=== PATIENT | male | born 1960 | race Caucasian/White ===

== ENCOUNTER 2022-09-16 11:07 | Emergency (ER) | payer OTHER, MEDICARE, SELFPAY ==
--- NOTE | 2022-09-16 11:21 | ED.GENADULT ---
HPI - General Adult General Chief complaint: Eye Problems Stated complaint: EYE PAIN, SEEN FOR SAME RECENTLY PER EMS Time Seen by Provider: 09/16/22 11:12 Source: patient and EMS Mode of arrival: EMS Limitations: no limitations History of Present Illness HPI narrative: 61 yo male with history of PTSD, depression, agoraphobia, anxiety and ETOH abuse who presents to the ER for evaluation of dry itchy eyes since 09/05. He went to the eye doctor who prescribed him antibiotic drops, ointment and Refresh drops for moisture. He called her the next day and told her it wasn't working. He reports compliance with her treatments. He states he cannot sleep because his eyes are itchy and watery. He put cream on the skin around his eyes but it burned. He reports increased watering and FB sensation. No hx injury or trauma. No hx allergies. No vision changes. MD complaint: itchy, dry eyes Onset (ago): day(s) Location: face Radiation: non-radiation Severity: severe Quality: aching and other (itchy) Pain Consistency: constant Relieving factors: none Exacerbating factors: none Related Data Allergies Allergy/AdvReac Type Severity Reaction Status Date / Time No Known Allergies Allergy Unverified 07/06/20 16:53 [No Known Allergies*] Review of Systems Review of Systems: Constitutional: No Fever, No Chills ENT/Mouth: No sore throat, No Rhinorrhea Eyes: + Eye Pain, + Swelling, + Redness, +Itching Cardiovascular: No Chest Pain, No SOB, No Orthopnea, No Edema Respiratory: No Cough, No Sputum Gastrointestinal: No Nausea, No Vomiting, No Diarrhea, No abdominal Pain Musculoskeletal: No joint pain, No Myalgias Skin: No Skin Lesions, No rash Neuro:No Dizziness, No Headache Psych: + Anxiety/Panic, No Depression PMFSH Social History Social History Advance Directives: No Advance Directives Information Provided: Yes Physical Exam ED Vital Signs: Vital Signs - 24 hr 09/16/22 11:33 Temperature 98.6 F Pulse Rate 81 Respiratory Rate 18 Blood Pressure 178/98 H Pulse Oximetry 100 Oxygen Delivery Method Room Air BMI result Body Mass Index 21.2 Appearance: Alert. Oriented X3. No acute distress. HEENT: normal external inspection with mild dry, flakey skin in the periorbial area. normal inspection of the sclera and conjuctiva. PERRLA, EOMI. no injection or discharge. CVS: Normal heart rate and rhythm. Pulses normal. Respiratory: No respiratory distress. Skin: Skin warm and dry. Normal skin color. Normal skin turgor. No rashes. Extremities: normal inspection x4. Neuro: Oriented X 3. Anxious. Nonfocal Course Course Course Narrative: 51-year-old male presents to the ER for evaluation of dry itchy eyes the last week and a half. RT seen by his eye doctor and prescribed drops in ointments. He reports that they are not working. He reports some mild foreign body sensation so. He states she already is eyes and declined any scratches or abrasions. He has been using the previously prescribed medications as directed with no improvement. He has not call the eye doctor back to arrange a follow-up appointment. He states the dryness and itchiness is keeping him from sleeping. Patient is asking for IV fluids to help with his dry eyes. Patient was counseled on management of dry itchy eyes. He was offered a fluorescein exam of which he declined. He would like to go home. Encouraged him to follow-up with his eye doctor for further management of his symptoms. Discharge Plan Discharge Clinical Impression: Dry eye Patient Disposition: Home, Self-Care Instructions: How to Use Eye Drops (ED), Dry Eye Syndrome (ED) Additional Instructions: Use the previously prescribed eyedrops and I ointments as prescribed by her eye doctor. Recommend topical Vaseline to the skin surrounding the eye to help with dryness of the skin and help with itching. Recommend starting an [id number] antihistamine such as Zyrtec or Claritin, take this once per day. Recommend following up with your eye doctor this week for further management. Interventions: ED Discharge Assessment Last Done: 09/16/22 12:07 Discharge Date/Time: 09/16/22 12:09
[2022-09-16 11:33] VITALS: BP 178/98; PULSE 81; RESP 18; TEMP 37; O2SAT 100; BMI 21.2
[2022-09-16 11:34] VITALS: BP 172/96; PULSE 82; O2SAT 98
== END 2022-09-16 12:09 | disposition home or self-care (01) ==
PROVIDERS: Emergency Provider Emergency Medicine
DX: H04.123 Dry eye syndrome of bilateral lacrimal glands (principal)
CPT/HCPCS: 99282; 99283